=== PATIENT | male | born 2000 | race African-American/Black ===

== ENCOUNTER 2019-05-31 07:53 | Emergency (ER) | payer MEDICAID ==
[~2019-05-31] VITALS: Ht 172.7 cm; Wt 55.0 kg
[2019-05-31] MEDS ORDERED: IBUPROFEN 600MG TABLET PO STA (08:43)
[2019-05-31 09:55] VITALS: BP 110/60
== END 2019-05-31 09:55 | disposition home or self-care (01) ==
LOC: ER 07:53
DX: S20.219A Contusion of unspecified front wall of thorax, initial encounter (principal); F12.10 Cannabis abuse, uncomplicated; Z88.0 Allergy status to penicillin; V43.52XA Car driver injured in collision with other type car in traffic accident, initial encounter; W22.11XA Striking against or struck by driver side automobile airbag, initial encounter; Y93.89 Activity, other specified; Y92.488 Other paved roadways as the place of occurrence of the external cause
CPT/HCPCS: 71045; 93005; 99283

== ENCOUNTER 2019-09-05 21:43 | Emergency (ER) | payer MEDICAID ==
[~2019-09-05] VITALS: Ht 172.7 cm; Wt 66.0 kg
[2019-09-05] MEDS ORDERED: IBUPROFEN 600MG TABLET PO ONE (23:15)
[2019-09-05] MEDS ORDERED: AMOXICILLIN/POTASSIUM CLAVULANATE 875/125MG TAB PO ONE (23:15)
[2019-09-05] MEDS ORDERED: BACITRACIN ZINC OINT UDPKT TOP ONE (23:15)
[2019-09-05] MEDS ORDERED: CLINDAMYCIN HCL 150MG CAPSULE PO ONE (23:45)
[2019-09-06 00:45] VITALS: BP 121/69
== END 2019-09-06 01:15 | disposition home or self-care (01) ==
LOC: ER 21:43
DX: S51.851A Open bite of right forearm, initial encounter (principal); J45.909 Unspecified asthma, uncomplicated; F12.10 Cannabis abuse, uncomplicated; Z88.0 Allergy status to penicillin; W54.0XXA Bitten by dog, initial encounter; Y93.89 Activity, other specified; Y92.89 Other specified places as the place of occurrence of the external cause
CPT/HCPCS: 73090; 99283